=== PATIENT | female | born 1945 | race Caucasian/White ===

== ENCOUNTER 2016-10-02 06:28 | Emergency (ER) | payer OTHER ==
[~2016-10-02] VITALS: Wt 77.5 kg
[~2016-10-02 06:28] MED LIST: LACR35O LEFT EYE; PRED20TA PO
[2016-10-02] MEDS ORDERED: ONDANSETRON (ODT) 4 MG TAB ODT STA (07:13)
--- NOTE | 2016-10-02 07:25 | ERD ---
ER Documentation Chief Complaint Date/Time DATE: 10/02/16 TIME: 07:14 Chief Complaint TOOTHACHE X2 DAYS HPI 71-year-old female with history of hypertension presents to the emergency department for ongoing tooth pain which began 2 years ago but has become worse since last night. Patient states she is currently experiencing a 7 out of 10 constant sharp pain localized to her abdomen right molar. Patient states she attempted to treat her pain with Tylenol yesterday morning and notes mild relief. Patient is currently afebrile and denies any feelings of fever, or chills. Patient states she is able to take in food and liquids okay but is very tender. Patient denies any swelling of her throat or posterior pharynx. Patient denies any wheezing or respiratory problems. Patient states she has never been diagnosed with diabetes. ROS All systems reviewed and are negative except as per history of present illness. Medications Home Meds Active Scripts Mineral Oil/Lanolin Oil (Lacri-Lube) 3.5 Gm Oint, 1 APPLIC LEFT EYE NEEDED for DRY EYES, #1 EA Prov:ADRIAN FRANKLIN MD 06/21/16 Prednisone* (Prednisone*) 20 Mg Tab, 60 MG PO DAILY for 4 Days, TAB Prov:ADRIAN FRANKLIN MD 06/21/16 Allergies Allergies: Coded Allergies: No Known Allergy (Unverified , 06/21/16) PMhx/Soc Hx Alcohol Use: No Hx Substance Use: No Hx Tobacco Use: No Physical Exam Vitals Vital Signs Date Time Temp Pulse Resp B/P Pulse Ox O2 Delivery O2 Flow Rate FiO2 10/02/16 06:31 97.5 80 18 172/81 96 Physical Exam Const: Well-developed, well-nourished in mild distress Head: Atraumatic Eyes: Normal Conjunctiva ENT: Dentition partially intact. Evidence of multiple tooth extractions which have healed well. Bottom right-sided molar with evidence of exposed pulp although no signs of erythema surrounding lower gumline. No severe tenderness when affected tooth is tapped. Normal External Ears, Nose and Mouth. Moist mucous membranes. Oropharynx clear without evidence of tonsillar edema or exudate. Neck: Full range of motion..~ No meningismus. Uvula midline. No lymphadenopathy Resp: Clear to auscultation bilaterally, no wheezes, rhonchi, rales Cardio: Regular rate and rhythm, no murmurs Abd: Soft, non tender, non distended. Normal bowel sounds Skin: No petechiae or rashes Back: No midline or flank tenderness Ext: No cyanosis, or edema Neur: Awake and alert Psych: Normal Mood and Affect Procedures/MDM This is a 71-year-old female with history of hypertension and stroke who presents to the emergency department for worsening chronic tooth pain since last night. At this time patient shows no evidence significant for apical abscess, peritonsillar abscess or serious bacterial periodontal disease. Vital signs reviewed patient is currently afebrile at 97.5. Patient received 1 dose of [place] for pain and Zofran. Patient tolerated medication well and reports improvement of symptoms. At this time there is no evidence significant for bacterial infection and therefore will not be prescribing any antibiotic therapy. I discussed with the patient the importance of following up with her dentist. Patient states she does not have one so I will provide her with a list of community resources she can access for better management of her chronic to pain. Based on patient's history of present illness and physical examination the decision was made to discharge. The patient was re-evaluated after ED treatment and stabilizing measures, and symptoms have improved. There is no evidence of life threatening injuries or illnesses at this time. On re-examination, patient resting in no distress, stable vital signs, reports feeling better and safe for discharge with outpatient follow up with PMD in 1-2 days. Patient given return precautions. NAA JON PA-C Oct 02, 2016 07:24
[2016-10-02] MEDS ORDERED: IBUP-1542 PO (07:27)
[2016-10-02] MEDS ORDERED: HYDR-902 PO (07:27)
[2016-10-02] MEDS ORDERED: HYDROCODONE/APAP (10/325) TAB PO ONE (07:30)
[2016-10-02 07:45] VITALS: BP 160/81; PULSE 77; RESP 18
== END 2016-10-02 08:50 | disposition home or self-care (01) ==
LOC: E/R 06:28
DX: K08.89 Other specified disorders of teeth and supporting structures (principal); I10 Essential (primary) hypertension; F17.210 Nicotine dependence, cigarettes, uncomplicated; R40.2142 Coma scale, eyes open, spontaneous, at arrival to emergency department; R40.2252 Coma scale, best verbal response, oriented, at arrival to emergency department; R40.2362 Coma scale, best motor response, obeys commands, at arrival to emergency department
CPT/HCPCS: 99283

== ENCOUNTER 2019-04-29 09:51 | Emergency (ER) | payer OTHER, MEDICAID ==
[~2019-04-29] VITALS: Ht 162.6 cm; Wt 73.4 kg
[~2019-04-29 09:51] MED LIST changes: +BEN25 PO; +HC30CR25 TOP; +HYDR-3980 PO; +IBUP-1542 PO; +IBUP-1561 PO
[2019-04-29 10:00] VITALS: BP 166/74; PULSE 89; RESP 18; Ht 162.6 cm; Wt 73.4 kg
[2019-04-29] MEDS ORDERED: DEXAMETHASONE 10 MG/ML 1 ML INJ IM ONE (10:30)
--- NOTE | 2019-04-29 10:58 | ERD ---
ER Documentation Chief Complaint Chief Complaint painful rash on neck, AC & stomach x 6 days HPI 34-year-old female with past medical history of hypertension, hyperlipidemia who presents with complaint of rash over the past 6 days. Describes painful rash to the neck bilateral upper extremities, antecubital spaces of both forearms. States she was in the sun for prolonged period. She denies any known exposure to any insect bites or other toxic exposures. She otherwise denies fevers, chills, shortness of breath, dyspnea, dysphagia, tongue swelling, medication use, recent travel, sick contacts or any other concerning symptoms. At time of evaluation patient nontoxic-appearing speaking in full sentences with normal triage vital signs. ROS All systems reviewed and are negative except as per history of present illness. Medications Home Meds Active Scripts Prednisone* (Prednisone*) 20 Mg Tab, 40 MG PO DAILY for 4 Days, TAB Prov:JOHANNE ROBC 04/29/19 Diphenhydramine Hcl* (Benadryl*) 25 Mg Cap, 25 MG PO Q6, #30 CAP Prov:JOHANNE ROBC 04/29/19 Ibuprofen* (Motrin*) 400 Mg Tab, 400 MG PO Q6, #30 TAB Prov:JOHANNE ROBC 04/29/19 Hydrocortisone* Topical (Hydrocortisone* Topical) 2.5%-28.3 Gm Cream..g., 1 APPLIC TOP BID for 7 Days, #1 TUB Prov:JOHANNE ROBC 04/29/19 Ibuprofen* (Motrin*) 600 Mg Tab, 600 MG PO Q6, #30 TAB Prov:NAA JON PA-C 10/02/16 Hydrocodone/Acetaminophen ([place] 10-325 Tablet) 1 Each Tablet, 1 TAB PO Q6H PRN for PAIN, #7 TAB Prov:NAA JONC 10/02/16 Mineral Oil/Lanolin Oil (Lacri-Lube) 3.5 Gm Oint, 1 APPLIC LEFT EYE NEEDED for DRY EYES, #1 EA Prov:ADRIAN FRANKLIN MD 06/21/16 Prednisone* (Prednisone*) 20 Mg Tab, 60 MG PO DAILY for 4 Days, TAB Prov:ADRIAN FRANKLIN MD 06/21/16 Allergies Allergies: Coded Allergies: No Known Allergy (Unverified , 06/21/16) PMhx/Soc Medical and Surgical Hx: pt denies Surgical Hx Hx Alcohol Use: No Hx Substance Use: No Hx Tobacco Use: No Smoking Status: Never smoker FmHx Family History: No diabetes, No coronary disease, No other Physical Exam Vitals Vital Signs Date Temp Pulse Resp B/P (MAP) Pulse Ox O2 O2 Flow FiO2 Time Delivery Rate 04/29/19 98.5 89 18 166/74 95 10:00 (104) Physical Exam I have reviewed the triage vital signs. Const: Well nourished, well developed, appears stated age Eyes: PERRL, no conjunctival injection HENT: NCAT, Neck supple without meningismus CV: RRR, Warm, well-perfused extremities RESP: CTAB, Unlabored respiratory effort GI: soft, non-tender, non-distended, no masses MSK: No gross deformities appreciated Skin: Warm, dry. Erythematous rash to bilateral antecubital space, upper neck erythema, tender, no open lacerations Neuro: grossly non focal Psych: Appropriate mood and affect. Results 24 hrs Current Medications Medications Dose Sig/Peter Start Time Status Last (Trade) Ordered Route PRN Stop Time Admin Dose Reason Admin 10 mg ONCE ONCE 04/29/19 DC 04/29/19 Dexamethasone IM 10:30 10:31 (Decadron) 04/29/19 10:31 Procedures/MDM 74-year-old female presents with complaint of rash. May be component of sunburn especially in the upper neck. Otherwise rash is not concerning she does not have any worrisome respiratory symptoms, no fevers or chills. I have low suspicion for any acute process warranting further emergent care work-up Posadas-Dwight's, TENS or any other concerning rash. ED course: Decadron, will discharge with Benadryl, hydrocortisone cream, ibuprofen, short course of steroids DISPOSITION PLAN: We discussed follow up with the patient's primary care doctor within 24 to 48 hours. Patient counseled regarding my diagnostic impression and care plan. Prior to discharge all questions answered. Pt agrees with treatment plan and understands strict return precautions. Precautionary instructions provided including instructions to return to the ER if not improving or for any worsening or changing symptoms or concerns. Disclaimer: Inadvertent spelling and grammatical errors are likely due to EHR/dictation software use and do not reflect on the overall quality of patient care. Also, please note that the electronic time recorded on this note does not necessarily reflect the actual time of the patient encounter. Departure Diagnosis: Primary Impression: Rash Condition: Stable Patient Instructions: Self-Care for Skin Rashes Additional Instructions: Call your primary care doctor TOMORROW for an appointment during the next 2-3 days.See the doctor sooner or return here if your condition worsens before your appointment time. JOHANNE ROB PA-C Apr 29, 2019 10:58
== END 2019-04-29 11:24 | disposition home or self-care (01) ==
LOC: FTE 09:51
DX: R21 Rash and other nonspecific skin eruption (principal); I10 Essential (primary) hypertension
CPT/HCPCS: 96372; J1100